=== PATIENT | female | born 2000 | race Caucasian/White ===

== ENCOUNTER 2018-10-02 16:52 | Emergency (ER) | payer OTHER ==
[2018-10-02] MEDS ORDERED: NORMAL SALINE 1000 ML 1,000 ML IV ONE (17:49)
--- NOTE | 2018-10-02 17:50 | ER Document Report ---
ED Medical Screen (RME) - General Chief Complaint: Abdominal Pain Stated Complaint: SHORTNESS OF BREATH, DIZZY, WEAK Time Seen by Provider: 10/02/18 17:34 Mode of Arrival: Ambulatory Information source: Patient Notes: Patient presents complaining of weakness, dizziness with shortness of breath and a heaviness in her chest. Patient denies any cough or cold symptoms. Patient states that she is about 8 weeks although has not had any ultrasound to confirm the . Patient does complain of lower abdominal cramping. I have greeted and performed a rapid initial assessment of this patient. A comprehensive ED assessment and evaluation of the patient, analysis of test results and completion of the medical decision making process will be conducted by additional ED providers. TRAVEL OUTSIDE OF THE [place] IN LAST 30 DAYS: No - Related Data Allergies/Adverse Reactions: No Known Allergies Allergy (Unverified 10/02/18 16:59) Physical Exam - Vital signs Vitals: Temp Pulse Resp BP Pulse Ox 98.2 F 73 16 116/56 L 99 10/02/18 17:05 10/02/18 17:05 10/02/18 17:05 10/02/18 17:05 10/02/18 17:05 - Abdominal Tenderness: Tender - Lower pelvic Course - Vital Signs Vital signs: Temp Pulse Resp BP Pulse Ox 98.2 F 73 16 116/56 L 99 10/02/18 17:05 10/02/18 17:05 10/02/18 17:05 10/02/18 17:05 10/02/18 17:05
[2018-10-02 18:14] LABS: ABSOLUTE MONOCYTES (AUTO) 0.7 10^3/uL (0.1-1.4); ABSOLUTE NEUT (AUTO) 6.9 10^3/uL (1.7-8.2); BASOPHILS % (AUTO) 0.5 % (0-2); EOSINOPHILS % (AUTO) 0.4 % (0-6); HEMATOCRIT 36.3 % (36.0-47.0); HEMOGLOBIN 12.5 g/dL (12.0-15.5); LYMPHOCYTES % (AUTO) 20.4 % (13-45); MEAN CORPUSCULAR HEMOGLOBIN 30.4 pg (27.0-33.4); MEAN CORPUSCULAR HGB CONC 34.5 g/dL (32.0-36.0); MEAN CORPUSCULAR VOLUME 88 fl (80-97); MONOCYTES % (AUTO) 6.9 % (3-13); PLATELET COUNT 197 10^3/uL (150-450); RED BLOOD COUNT 4.12 10^6/uL (3.72-5.28); RED CELL DISTRIBUTION WIDTH 12.4 % (11.5-14.0); SEGMENTED NEUTROPHILS % (AUTO) 71.8 % (42-78); TOTAL CELLS COUNTED % (AUTO) 100 %; WHITE BLOOD COUNT 9.7 10^3/uL (4.0-10.5)
[2018-10-02 18:37] LABS: ANION GAP 10 (5-19); BLOOD UREA NITROGEN 17 mg/dL (7-20); CALCIUM 9.7 mg/dL (8.4-10.2); CARBON DIOXIDE 26 mmol/L (22-30); CHLORIDE 101 mmol/L (98-107); GLUCOSE 93 mg/dL (75-110); SODIUM 137.3 mmol/L (137-145)
--- NOTE | 2018-10-02 18:51 | RADIOLOGY REPORT (SQ) ---
EXAM DESCRIPTION: U/S OB TRANSVAGINAL W/O DOP COMPLETED DATE/TIME: 10/02/2018 6:33 pm REASON FOR STUDY: pelvic pain COMPARISON: None. TECHNIQUE: Transvaginal static and realtime grayscale images acquired of the pelvis. Additional sue cted spectral and color Doppler images recorded. All images stored on PACs. bHCG: Pending. CLINICAL DATES: EGA LIMITATIONS: None. FINDINGS: FETUS: Single Living intrauterine . ULTRASOUND EGA: 7 weeks 1 day ULTRASOUND ELY: 05/20/2019 EFW: Not applicable less than 20 weeks. CRL: 1.2 cm FHR: 132 beats per minute. SURVEY: No visualized anomalies. AMNIOTIC FLUID: Adequate amount. PLACENTA: Not yet developed due to early gestation. SUBCHORIONIC BLEED: No. SIZE OF BLEED: Not applicable. UTERUS: No masses. No anomalies. CERVICAL LENGTH: 3.8 cm Closed. RIGHT ADNEXA: Ovary not identified due to poor acoustical window. No adnexal free fluid. No adnexal masses. LEFT ADNEXA: Normal ovary with normal vascular flow. No adnexal free fluid. No adnexal masses. FREE FLUID: None. OTHER: No other significant finding. IMPRESSION: LIVING INTRAUTERINE . EGA 7 weeks 1 day Trimester of : First - 0 to 13 weeks. TECHNICAL DOCUMENTATION: JOB ID: [id number] [employer]- All Rights Reserved Reading location - IP/workstation name: [email or web address]
--- NOTE | 2018-10-02 19:03 | RADIOLOGY REPORT (SQ) ---
EXAM DESCRIPTION: CHEST 2 VIEWS COMPLETED DATE/TIME: 10/02/2018 6:50 pm REASON FOR STUDY: cp, sob COMPARISON: None. EXAM PARAMETERS: NUMBER OF VIEWS: two views TECHNIQUE: Digital Frontal and Lateral radiographic views of the chest acquired. RADIATION DOSE: NA LIMITATIONS: none FINDINGS: LUNGS AND PLEURA: No opacities, masses or pneumothorax. No pleural effusion. MEDIASTINUM AND HILAR STRUCTURES: No masses or contour abnormalities. HEART AND VASCULAR STRUCTURES: Heart normal size. No evidence for failure. BONES: No acute findings. HARDWARE: None in the chest. OTHER: No other significant finding. IMPRESSION: NO ACUTE RADIOGRAPHIC FINDING IN THE CHEST. TECHNICAL DOCUMENTATION: JOB ID: [id number] [employer]- All Rights Reserved Reading location - IP/workstation name: [email or web address]
[2018-10-02 20:23] LABS: APPEARANCE,URINE CLEAR; BILIRUBIN,URINE NEGATIVE (NEGATIVE); COLOR,URINE COLORLESS; GLUCOSE, URINE NEGATIVE (NEGATIVE); KETONES,URINE NEGATIVE (NEGATIVE); LEUKOCYTE ESTERASE,URINE NEGATIVE (NEGATIVE); NITRITE,URINE NEGATIVE (NEGATIVE); PROTEIN,URINE NEGATIVE (NEGATIVE); URINE SPECIFIC GRAVITY 1.013; UROBILINOGEN,URINE NEGATIVE mg/dL (<2.0)
--- NOTE | 2018-10-02 20:38 | ER Document Report ---
HPI - HPI Patient complains to provider of: Weakness, dizzy, lower abdominal cramping Time Seen by Provider: 10/02/18 17:34 Onset: This morning Onset/Duration: Gradual Quality of pain: Cramping Pain Level: 2 Context: Patient states that she is currently about 8 weeks and developed weakness, dizziness and shortness of breath this morning. Patient denies any cough or cold symptoms. Patient also complains of intermittent lower abdominal cramping but attributes this to the growing fetus. Patient denies any vaginal bleeding or discharge. Patient denies any urinary symptoms. Patient has not followed up with DATABASE PROGRAMMER to establish care. Patient has not had an ultrasound to confirm the as of yet. Associated Symptoms: Shortness of breath, Other - Pelvic cramping, dizziness. denies: Nonproductive cough, Productive cough, Fever Exacerbated by: Standing Relieved by: Denies Similar symptoms previously: No Recently seen / treated by doctor: No - ROS ROS below otherwise negative: Yes Systems Reviewed and Negative: Yes All other systems reviewed and negative - CONSTITUTIONAL Constitutional: DENIES: Fever, Chills - EENT EENT: DENIES: Sore Throat, Congestion - NEURO Neurology: REPORTS: Dizzinesss / Vertigo. DENIES: Headache - CARDIOVASCULAR Cardiovascular: DENIES: Chest pain - RESPIRATORY Respiratory: REPORTS: Trouble Breathing. DENIES: Coughing - GASTROINTESTINAL Gastrointestinal: REPORTS: Abdominal Pain. DENIES: Nausea, Patient vomiting - REPRODUCTIVE Reproductive: REPORTS: :. DENIES: Abnormal bleeding / discharge - MUSCULOSKELETAL Musculoskeletal: DENIES: Extremity pain, Back Pain, Swelling - DERM Skin Color: Normal Skin Problems: None Past Medical History - General Information source: Patient - Social History Smoking Status: Never Smoker Chew tobacco use (# tins/day): No Frequency of alcohol use: None Drug Abuse: None Occupation: Active duty Lives with: Family Family History: Reviewed & Not Pertinent Patient has suicidal ideation: No Patient has homicidal ideation: No - Medical History Medical History: Negative - Past Medical History Cardiac Medical History: Denies: Hx DVT, Hx Pulmonary Embolism Renal/ Medical History: Denies: Hx Peritoneal Dialysis Surgical Hx: Negative - Immunizations Immunizations up to date: Yes Vertical Provider Document - CONSTITUTIONAL Agree With Documented VS: Yes Exam Limitations: No Limitations General Appearance: WD/WN, No Apparent Distress - INFECTION CONTROL TRAVEL OUTSIDE OF THE [place] IN LAST 30 DAYS: No - HEENT HEENT: Atraumatic, Normal ENT Exam, Normocephalic - NECK Neck: Normal Inspection, Supple. negative: Lymphadenopathy-Left, Lymphadenopathy-Right - RESPIRATORY Respiratory: Breath Sounds Normal, No Respiratory Distress, Chest Non-Tender. negative: Rales, Rhonchi, Wheezing Notes: No objective dyspnea, no tachypnea, no increased respiratory effort - CARDIOVASCULAR Cardiovascular: Regular Rate, Regular Rhythm, No Murmur. negative: Tachycardia - GI/ABDOMEN Gastrointestinal: Abdomen Soft, Abdomen Non-Tender, Normal Bowel Sounds - BACK Back: Normal Inspection. negative: CVA Tenderness-Right, CVA Tenderness-Left - MUSCULOSKELETAL/EXTREMETIES Musculoskeletal/Extremeties: MAEW, FROM, Non-Tender, No Edema - NEURO Level of Consciousness: Awake, Alert, Appropriate Motor/Sensory: No Motor Deficit - DERM Integumentary: Warm, Dry, No Rash Course - Re-evaluation Re-evalutation: 10/02/18 20:32 Respirations even unlabored, patient without any tachypnea or tachycardia. Patient without any hypoxia. Chest x-ray reviewed, no concern for pneumonia or pneumothorax. No concern for PE at this time. Will defer any additional imaging at this time. Patient encouraged to follow-up with her primary doctor to establish care. - Vital Signs Vital signs: Temp Pulse Resp BP Pulse Ox 98.2 F 73 16 116/56 L 99 10/02/18 17:05 10/02/18 17:05 10/02/18 17:05 10/02/18 17:05 10/02/18 17:05 - Laboratory Result Diagrams: 10/02/18 17:58 10/02/18 17:58 Laboratory results interpreted by me: 10/02/18 17:58 Beta HCG, Quant [id number] H 10/02/18 20:33 Labs- Entire Visit 10/02/18 10/02/18 10/02/18 17:58 17:58 19:52 WBC 9.7 RBC 4.12 Hgb 12.5 Hct 36.3 MCV 88 MCH 30.4 MCHC 34.5 RDW 12.4 Plt Count 197 Seg Neutrophils % 71.8 Lymphocytes % 20.4 Monocytes % 6.9 Eosinophils % 0.4 Basophils % 0.5 Absolute Neutrophils 6.9 Absolute Lymphocytes 2.0 Absolute Monocytes 0.7 Absolute Eosinophils 0.0 Absolute Basophils 0.0 Sodium 137.3 Potassium 4.0 Chloride 101 Carbon Dioxide 26 Anion Gap 10 BUN 17 Creatinine 0.64 Est GFR ( Amer) > 60 Est GFR (Non-Af Amer) > 60 Glucose 93 Calcium 9.7 Beta HCG, Quant 000410.00 H Total Beta HCG POSITIVE Urine Color COLORLESS Urine Appearance CLEAR Urine pH 6.0 Ur Specific [place] 1.013 Urine Protein NEGATIVE Urine Glucose (UA) NEGATIVE Urine Ketones NEGATIVE Urine Blood NEGATIVE Urine Nitrite NEGATIVE Urine Bilirubin NEGATIVE Urine Urobilinogen NEGATIVE Ur Leukocyte Esterase NEGATIVE Urine RBC (Auto) 0 Squamous Epi Cells Auto 1 Urine Mucus (Auto) RARE Urine Ascorbic Acid NEGATIVE - Diagnostic Test Radiology reviewed: Reports reviewed Discharge - Discharge Clinical Impression: Dizzy spells Qualifiers: Weeks of gestation: less than 8 weeks Qualified Code(s): Z3A.01 - Less than 8 weeks gestation of Dyspnea Qualifiers: Dyspnea type: unspecified Qualified Code(s): R06.00 - Dyspnea, unspecified Condition: Stable Disposition: HOME, SELF-CARE Instructions: Dyspnea, Nonspecific ([facility]), Pelvic Pain in ([facility]), ([facility]), Weakness ([facility]) Additional Instructions: Return immediately for any new or worsening symptoms Followup with your primary care provider, call tomorrow to make a followup appointment Follow-up with an DATABASE PROGRAMMER to establish care. Your primary doctor can make this referral for you. Referrals: [facility] [Provider Group] - Follow up as needed [facility] [Provider Group] - Follow up tomorrow
[2018-10-02 21:02] VITALS: BP 102/46
--- NOTE | 2018-10-03 00:46 | EKG REPORT ---
SEVERITY:- NORMAL ECG - SINUS RHYTHM : Confirmed by: Mindy Fry MD 03-Oct-2018 00:45:21
== END 2018-10-02 21:21 | disposition home or self-care (01) ==
LOC: EDSEX 16:52 → ER 16:52
DX: O26.91 Pregnancy related conditions, unspecified, first trimester (principal); R42 Dizziness and giddiness; R06.00 Dyspnea, unspecified; R53.1 Weakness; R10.30 Lower abdominal pain, unspecified; Z3A.08 8 weeks gestation of pregnancy
CPT/HCPCS: 93005; 99285; 36415; 84702; 85025; 80048; 81001; 71046; 76817; 93010; J7030